=== PATIENT | male | born 1950 | race Caucasian/White ===

== ENCOUNTER → 2016-11-01 | Outpatient (CLI) | payer MEDICARE | END | disposition home or self-care (01) | LOC: RAD 11:07 → EDSTATUS 11:30 | PROVIDERS: ATTEND Internal Medicine Cardiovascular Disease | DX: M71.22 Synovial cyst of popliteal space [Baker], left knee (principal); M79.89 Other specified soft tissue disorders ==

== ENCOUNTER 2017-02-08 21:40 | Emergency (ER) | payer MEDICARE ==
[~2017-02-08] VITALS: Ht 190.5 cm; Wt 137.8 kg
[2017-02-08] MEDS ORDERED: SULFAMETH./TRIMETHOPRIM DS 800MG/160MG TABLET ONE (22:51)
[2017-02-08] MEDS ORDERED: CEFAZOLIN 1,000 MG ONE (22:51)
[2017-02-08] MEDS ORDERED: CEFAZOLIN 1,000 MG IM ONE (23:00)
[2017-02-08] MEDS ORDERED: PLEASE ENTER ALLERGIES MC SCH ×2 (23:00)
[2017-02-08] MEDS ORDERED: SULFAMETH./TRIMETHOPRIM DS 800MG/160MG TABLET PO ONE (23:00)
[2017-02-09 00:34] VITALS: BP 129/70
== END 2017-02-09 00:37 | disposition home or self-care (01) ==
LOC: ED 23:36
DX: L03.115 Cellulitis of right lower limb (principal); L03.113 Cellulitis of right upper limb; Z79.82 Long term (current) use of aspirin; I10 Essential (primary) hypertension
CPT/HCPCS: 36415; 85025; 96372; 99283; J0690

== ENCOUNTER 2017-02-10 06:18 | Emergency (ER) | payer MEDICARE ==
[~2017-02-10] VITALS: Ht 190.5 cm; Wt 135.9 kg
[2017-02-10 06:21] VITALS: BP 137/74
== END 2017-02-10 07:28 | disposition home or self-care (01) ==
LOC: ED 07:20
DX: L03.115 Cellulitis of right lower limb (principal); I10 Essential (primary) hypertension
CPT/HCPCS: 99281

== ENCOUNTER → 2017-10-01 | Outpatient (CLI) | payer MEDICARE | LOC: CFH 13:18 | PROVIDERS: ATTEND Family Medicine | DX: M79.604 Pain in right leg (principal); R21 Rash and other nonspecific skin eruption ==

== ENCOUNTER → 2018-08-11 | Outpatient (CLI) | payer MEDICARE | END | disposition home or self-care (01) | LOC: CVU 12:31 | PROVIDERS: ATTEND Internal Medicine Cardiovascular Disease | DX: I35.8 Other nonrheumatic aortic valve disorders (principal); R60.0 Localized edema; I10 Essential (primary) hypertension | CPT/HCPCS: 93306; 93970 ==

== ENCOUNTER → 2018-11-15 | Outpatient (CLI) | payer MEDICARE | END | disposition home or self-care (01) | LOC: CVU 15:27 | PROVIDERS: ATTEND Internal Medicine Cardiovascular Disease | DX: I35.0 Nonrheumatic aortic (valve) stenosis (principal); I11.9 Hypertensive heart disease without heart failure; I45.10 Unspecified right bundle-branch block; Z87.891 Personal history of nicotine dependence | CPT/HCPCS: 93306 ==

== ENCOUNTER → 2019-09-19 | Outpatient (CLI) | payer MEDICARE | END | disposition home or self-care (01) | LOC: CFH 11:56 | PROVIDERS: ATTEND Internal Medicine Cardiovascular Disease | DX: R07.9 Chest pain, unspecified (principal); I45.19 Other right bundle-branch block | CPT/HCPCS: 78452; 93017; A9502 ==

== ENCOUNTER → 2020-10-19 | Outpatient (CLI) | payer MEDICARE | END | disposition home or self-care (01) | LOC: CFH 15:27 | PROVIDERS: ATTEND Nurse Practitioner Family | DX: M79.89 Other specified soft tissue disorders (principal) ==

== ENCOUNTER 2020-10-26 13:33 | Outpatient (CLI) | payer MEDICARE ==
[2020-10-26] MEDS ORDERED: OMNIPAQUE 350 MG/ML, 100ML BOTTLE ONE (16:37)
== END 2020-10-26 23:59 | disposition home or self-care (01) ==
LOC: CVU 13:33
PROVIDERS: ATTEND Internal Medicine Cardiovascular Disease
DX: I35.8 Other nonrheumatic aortic valve disorders (principal); I11.9 Hypertensive heart disease without heart failure; I45.10 Unspecified right bundle-branch block; R06.02 Shortness of breath; I26.99 Other pulmonary embolism without acute cor pulmonale
CPT/HCPCS: 71275; 93306; Q9967

== ENCOUNTER → 2020-10-29 | Outpatient (CLI) | payer MEDICARE ==
[~2020-10-29] MED LIST: REGADENOSON 0.4 MG/5 ML SYRINGE ONE
== END | disposition home or self-care (01) ==
LOC: CFH 11:57
PROVIDERS: ATTEND Internal Medicine Cardiovascular Disease
DX: I26.99 Other pulmonary embolism without acute cor pulmonale (principal); R06.02 Shortness of breath
CPT/HCPCS: 78452; 93017; A9502; J2785

== ENCOUNTER 2021-01-29 12:59 | Outpatient (CLI) | payer MEDICARE ==
[2021-01-29] MEDS ORDERED: HEPARIN 1,000 UNITS/ML, 10ML ONE (13:45)
== END 2021-01-29 23:59 | disposition home or self-care (01) ==
LOC: RAD 12:59
PROVIDERS: ATTEND Internal Medicine Cardiovascular Disease
DX: R93.1 Abnormal findings on diagnostic imaging of heart and coronary circulation (principal)
CPT/HCPCS: 78472; A9560; J1642; J1644

== ENCOUNTER 2021-03-21 06:30 | Day surgery (SDC) | payer MEDICARE ==
[~2021-03-21] VITALS: Ht 190.5 cm; Wt 138.9 kg
[2021-03-21 07:31] VITALS: BP 127/80
[2021-03-21] MEDS ORDERED: POTA10TA12 PO (07:54)
[2021-03-21] MEDS ORDERED: METO25TA35 PO (07:54)
[2021-03-21] MEDS ORDERED: ASPI81TA45 PO (07:54)
[2021-03-21] MEDS ORDERED: SPIR25TA PO (07:54)
[2021-03-21] MEDS ORDERED: TAMS-11 PO (07:54)
[2021-03-21] MEDS ORDERED: TADA5TAB2 PO (07:54)
[2021-03-21] MEDS ORDERED: FURO-93 PO (07:54)
[2021-03-21] MEDS ORDERED: ISOPROTERENOL 0.2MG/ML, 5ML ONE (08:19)
== END 2021-03-21 08:50 | disposition home or self-care (01) ==
LOC: CACL 06:30
PROVIDERS: ATTEND Internal Medicine Clinical Cardiac Electrophysiology
DX: R42 Dizziness and giddiness (principal)
CPT/HCPCS: 93660